=== PATIENT | female | born 1995 | race African-American/Black ===

== ENCOUNTER → 2019-04-27 13:03 | Outpatient (CLI) | payer BC, SELFPAY ==
--- NOTE | ~2019-04-27 | XR_ITS ---
EXAMINATION: XR tibia fibula RT 2V EXAM DATE: 04/27/2019 13:59 INDICATION: Right leg pain. TECHNIQUE: Right tibia/fibula frontal and lateral projections obtained and reviewed. There is no bart or study for comparison. FINDINGS: Right tibial and fibular shafts unremarkable. Unremarkable right knee and ankle joints. T here are no acute fractures or dislocations identified. There is no subcutaneous gas. The soft tiss ue is unremarkable. There are no radiopaque foreign bodies. IMPRESSION: 1. Unremarkable XR tibia fibula RT 2V exam. Reviewed, dictated and finalized at location B. 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
--- NOTE | ~2019-04-27 | XR_ITS ---
EXAMINATION: XR tibia fibula LT 2V EXAM DATE: 04/27/2019 13:59 INDICATION: No known recent injury provided at this time. Pain of the left leg. TECHNIQUE: Left tibia/fibula frontal and lateral projections obtained and reviewed. There is no prio r study for comparison. FINDINGS: Left tibial and fibular shafts unremarkable. Left knee and ankle joints are unremarkable. There are no acute fractures or dislocations identified. There is no subcutaneous gas. The soft ti ssue is unremarkable. There are no radiopaque foreign bodies. IMPRESSION: 1. Unremarkable XR tibia fibula LT 2V exam. Reviewed, dictated and finalized at location B. UREMENT AND VERIFICATION ENGINEER
--- NOTE | ~2019-04-27 | XR_ITS ---
EXAMINATION: XR femur LT min 2V EXAM DATE: 04/27/2019 13:59 INDICATION: No known recent injury provided at this time. Pain of the legs bilaterally. TECHNIQUE: Left femur frontal and lateral projections of the proximal aspect, frontal and lateral pro jections of the lower aspect for review. There is no prior study for comparison. FINDINGS: No appreciable left hip or knee arthritis. There are no acute fractures or dislocations i dentified. There is no subcutaneous gas. The soft tissue is unremarkable. There are no radiopaque foreign bodies. IMPRESSION: 1. Unremarkable XR femur LT min 2V exam. Reviewed, dictated and finalized at location B. 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
--- NOTE | ~2019-04-27 | XR_ITS ---
EXAMINATION: XR femur RT min 2V EXAM DATE: 04/27/2019 13:59 INDICATION: No known recent injury provided at this time. Pain of the right leg. Symptoms 17 years. TECHNIQUE: Right femur frontal and lateral projections of the proximal aspect, frontal and lateral pr ojections of the lower aspect for review. There is no prior study for comparison. FINDINGS: Unremarkable right hip and knee joints. There are no acute fractures or dislocations iden tified. There is no subcutaneous gas. The soft tissue is unremarkable. There are no radiopaque fo reign bodies. IMPRESSION: 1. Unremarkable XR femur RT min 2V exam. Reviewed, dictated and finalized at location B. ER OUT
== END ==
PROVIDERS: PCP Emergency Medicine; Visit Provider Emergency Medicine
DX: M79.669 Pain in unspecified lower leg (principal)
CPT/HCPCS: 73552; 73590

== ENCOUNTER 2019-11-05 15:00 | Outpatient (CLI) | payer BC, SELFPAY ==
--- NOTE | ~2019-11-05 | XR_ITS ---
EXAMINATION: XR UGI wo kub EXAM DATE: 11/05/2019 16:21 INDICATION: Abdominal pain, bloating, feels full fast. Frequent small meals. TECHNIQUE: Standard single and double contrast barium upper GI examination was performed. The DAP for this procedure was 0.5 Gycm2. There is no prior study for comparison. FINDINGS: There is no esophageal stricture, diverticulum or mass identified. Gastroesophageal juncti on is normal in appearance. Reflux was not demonstrated during this examination. The stomach has a normal appearance without evidence of mass lesion, ulceration or filling defect. T here is normal rugal fold pattern. The duodenum and duodenal sweep are normal in appearance. IMPRESSION: Normal exam. Reviewed, dictated and finalized at location A. IMPRESSION: Normal exam.
--- NOTE | ~2019-11-05 | US_ITS ---
EXAMINATION: US abdomen complete DATE: 11/05/2019 15:53 INDICATION: Abdominal pain TECHNIQUE: Multiple grayscale and Doppler ultrasound images of the abdomen were obtained. COMPARISON: None available FINDINGS: Bowel gas obscures visualization of the pancreas. The visualized portions of the pancreas a re unremarkable. The liver is normal with normal echogenicity and echotexture. No surface nodularity. Normal hepatopetal flow in the main portal vein. The gallbladder is normal with no abnormal wall thi ckening, pericholecystic fluid or stones. The normal common bile duct measures 4 mm. There was no son ographic Carrillo sign. The visualized portions of the aorta and inferior vena cava are normal. The right kidney measures 9.7 x 5.1 x 3.3 cm. The left kidney measures 11.5 x 4.4 x 4.5 cm. The kidne ys demonstrate normal parenchymal echogenicity. There is no hydronephrosis. The spleen is normal in a ppearance and measures 9.1 cm. IMPRESSION: 1. No sonographic correlate for the patient's symptoms. Reviewed, dictated and finalized at location B.
== END 2019-11-05 15:01 | disposition home or self-care (01) ==
PROVIDERS: PCP Emergency Medicine; Visit Provider Emergency Medicine
DX: R10.9 Unspecified abdominal pain (principal)
CPT/HCPCS: 74240; 76700

== ENCOUNTER 2020-02-07 08:23 | Emergency (ER) | payer BC, SELFPAY ==
[2020-02-07 08:30] VITALS: BP 106/59; PULSE 64; RESP 16; TEMP 36.3; O2SAT 99
--- NOTE | 2020-02-07 08:42 | ED.GENADULT ---
HPI - General Adult General Chief complaint: Urogenital-Female Stated complaint: Possible Yeast Infection Time Seen by Provider: 02/07/20 08:43 Source: patient Mode of arrival: ambulatory Limitations: no limitations History of Present Illness HPI narrative: 24-year-old female patient presents to the [facility] with complaints of vaginal itching and irritation for the past 4 days. Patient states that she did call her PAPER TWISTER on Friday and thought that it might just been a yeast infection was prescribed fluconazole. Patient states that she did take 1 pill. Patient states that typically it does cleared up however she continues to have symptoms of burning pain, irritation, dryness feeling and she does see some white discharge to the vagina. Patient states she also feels like she has had some lower abdominal pressure. Denies any back pain. Denies any fevers, body aches or chills. Patient states she does not necessarily have any concerns about STDs but states that she is sexually active. Patient states her last period was at the end of December. Patient states she does frequently get treated for BV but states she has not had a BV infection for about the last 3 or 4 months. Related Data Allergies Allergy/AdvReac Type Severity Reaction Status Date / Time No Known Allergies Allergy Verified 02/07/20 08:26 Review of Systems Review of Systems: Narrative: CONSTITUTIONAL: Denies fever, chills, or sweats. EYES: Denies visual changes, redness, or discharge. ENT: Denies rhinorrhea, congestion, sore throat, or otalgia. CARDIOVASCULAR: Denies chest pain, palpitations, or edema. RESPIRATORY: Denies cough or dyspnea. GASTROINTESTINAL: Denies abdominal pain, nausea, vomiting, or diarrhea. GENITOURINARY: Denies dysuria or hematuria. Positive vaginal itching, irritation and discharge SKIN: Denies rash or itching. MUSCULOSKELETAL: Denies back pain, joint pain, or myalgia. NEUROLOGIC: Denies headache, numbness, or weakness. PSYCHIATRIC: Denies anxiety or depression. PMFSH Comments At the time of my signature I agree with nursing past medical history, surgical, social, and family history. There is no relevant family history pertinent to the presenting complaint. Exam Narrative: Exam Narrative: GENERAL: Well-appearing, well-nourished, and in no acute distress. HEAD: Normocephalic, atraumatic. EYES: PERRLA and EOMI. ENT: Nares clear, no rhinorrhea or epistaxis. Mucous membranes moist. NECK: Supple. No lymphadenopathy CHEST: Clear to auscultation. No respiratory distress. HEART: Regular rate and rhythm. No murmur heard. Normal peripheral pulses. ABDOMEN: Soft, nontender, nondistended, normal active bowel sounds. No CVA tenderness on percussion : Normal external female genitalia. OS is closed. No adnexal fullness or TTP. Patient does have copious amount of white thick clumpy discharge in the canal and near the cervix. A swab was obtained for culture of chlamydia and gonorrhea. No CVA tenderness to percussion. EXTREMITIES: Normal range of motion. No edema. SKIN: Warm, dry, no rash. NEURO: No focal deficits. Alert and oriented x3. Course Vital Signs Vital signs: Vital Signs Temperature 36.3 C L 02/07/20 08:30 Pulse Rate 64 02/07/20 08:30 Respiratory Rate 16 02/07/20 08:30 Blood Pressure 106/59 L 02/07/20 08:30 Pulse Oximetry 99 02/07/20 08:30 Temperature 36.3 C L 02/07/20 08:30 Pulse Rate 64 02/07/20 08:30 Respiratory Rate 16 02/07/20 08:30 Blood Pressure 106/59 L 02/07/20 08:30 Pulse Oximetry 99 02/07/20 08:30 Vital signs reviewed. Medical Decision Making Differential Diagnosis Differential Diagnosis: Differential diagnosis: Uncomplicated lower UTI, uncomplicated UTI, pyelonephritis gonorrhea, chlamydia, Trichomonas, bacterial vaginosis, herpes, HIV, yeast infection, urinary tract infection. Discussed with patient that she definitely most likely could have a bacterial vaginosis however since we do not have a
[2020-02-07] MEDS: LIDOCAINE HCL 1% LOCAL INJ 20 ML VIAL IM (08:58)
[2020-02-07] MEDS: cefTRIAXone 250 MG VIAL IM (08:58)
== END 2020-02-07 09:22 | disposition home or self-care (01) ==
PROVIDERS: Emergency Provider Nurse Practitioner Family; PCP Emergency Medicine
DX: B37.3 Candidiasis of vulva and vagina (principal); Z20.2 Contact with and (suspected) exposure to infections with a predominantly sexual mode of transmission
CPT/HCPCS: 81003; 81025; 87086; 87491; 87591; 87661; 96372; 99214; G0463; J0696

== ENCOUNTER 2020-04-19 17:30 | Emergency (ER) | payer BC, SELFPAY ==
--- NOTE | 2020-04-19 17:48 | ECG_ITS ---
Measurements Intervals [place] Rate: 64 P: 72 CA: 171 QRS: 81 QRSD: 77 T: 45 QT: 363 QTc: 376 Interpretive Statements SINUS RHYTHM WITH SINUS ARRHYTHMIA MINIMAL Q WAVES- INFERIOR LEADS BORDERLINE ECG Electronically Signed On 04-20-2020 7:11:44 BRANCH ASSISTANT by Vj Gonzalez D.O.
[2020-04-19 17:49] VITALS: BP 127/76; PULSE 59; RESP 18; TEMP 36.8; O2SAT 100
--- NOTE | 2020-04-19 18:22 | ED.GENADULT ---
HPI - General Adult General Chief complaint: Extremity Problem,Nontraumatic Stated complaint: tingling/numbness left arm History of Present Illness HPI narrative: This is a 24-year-old female comes in complaining of left arm numbness and tingling periodically. Patient states that she has had chest pain off and on does not currently have chest pain. Patient is very tearful during conversation and states that she has a lot of anxiety. Patient also is feeling like she does not have any control things going on to her life has not spoke to a counselor or a psychiatrist states that her dad takes medication for anxiety. Patient states that she read information on strokes and said that this might be a warning sign of her having a stroke. Patient informed me that she does not have any headaches does not take any medication no nausea vomiting no shortness of breath. Patient begins to cry and says that she has not been able to stop crying and the little things make her cry a lot. She is Related Data Home Medications Medication Instructions Recorded Confirmed No Home Medications 04/19/20 04/19/20 Allergies Allergy/AdvReac Type Severity Reaction Status Date / Time No Known Allergies Allergy Verified 04/19/20 17:33 Review of Systems Review of Systems: Narrative: CONSTITUTIONAL: Denies fever, chills, or sweats. EYES: Denies visual changes, redness, or discharge. ENT: Denies rhinorrhea, congestion, sore throat, or otalgia. CARDIOVASCULAR: Reports chest pain, palpitations, or edema. RESPIRATORY: Denies cough or dyspnea. GASTROINTESTINAL: Denies abdominal pain, nausea, vomiting, or diarrhea. GENITOURINARY: Denies dysuria or hematuria. SKIN:[Denies rash or itching. MUSCULOSKELETAL:Denies back pain, joint pain, or myalgia. NEUROLOGIC: Denies headache, reports numbness, or weakness. PSYCHIATRIC:Denies anxiety or depression [facility] Social History Social History Gender identity (if verbalized by the patient): Female Sexual Orientation (if Verbalized by the Patient): Straight or Heterosexual Comments At time as signature, I have reviewed and agree with nursing past medical, social, surgical and family history. Please see nursing chart for further information. There is no relevant family history pertinent to the presenting complaint. Exam Narrative: Exam Narrative: GENERAL:Well-appearing, well-nourished, and in no acute distress. Tearful HEAD:Normocephalic, atraumatic. EYES: PERRLA and EOMI. ENT: Nares clear, no rhinorrhea or epistaxis. Mucous membranes moist. NECK: Supple. CHEST: Clear to auscultation. No respiratory distress. HEART: Regular rate and rhythm. No murmur heard. Normal peripheral pulses. ABDOMEN: Soft, nontender, nondistended, normal active bowel sounds. EXTREMITIES: Normal range of motion. No edema. 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 NEURO: No focal deficits. Alert and oriented x3. No neurological deficit Course Vital Signs Vital signs: Vital Signs Temperature 98.3 F 04/19/20 17:49 Pulse Rate 59 L 04/19/20 17:49 Respiratory Rate 18 04/19/20 17:49 Blood Pressure 127/76 04/19/20 17:49 Pulse Oximetry 100 04/19/20 17:49 Temperature 98.3 F 04/19/20 17:49 Pulse Rate 59 L 04/19/20 17:49 Respiratory Rate 18 04/19/20 17:49 Blood Pressure 127/76 04/19/20 17:49 Pulse Oximetry 100 04/19/20 17:49 Medical Decision Making MDM Narrative Medical decision making narrative: Discussed with patient not able to rule out a heart attack explained to her that this more than likely is anxiety patient would like to go to the emergency room to have the labs drawn Vital Signs Vital Signs: Vital Signs Temperature 98.3 F 04/19/20 17:49 Pulse Rate 59 L 04/19/20 17:49 Respiratory Rate 18 04/19/20 17:49 Blood Pressure 127/76 04/19/20 17:49 Pulse Oximetry 100 04/19/20 17:49
== END 2020-04-19 18:25 | disposition short-term general hospital (02) ==
PROVIDERS: Emergency Provider Nurse Practitioner Family; PCP Emergency Medicine
DX: R20.0 Anesthesia of skin (principal); R20.2 Paresthesia of skin; K21.9 Gastro-esophageal reflux disease without esophagitis
CPT/HCPCS: 93005; 99213; G0463

== ENCOUNTER 2020-04-19 18:32 | Emergency (ER) | payer BC, SELFPAY ==
[2020-04-19 18:38] VITALS: BP 125/69; PULSE 62; RESP 18; TEMP 36.3; O2SAT 100
--- NOTE | 2020-04-19 19:29 | PC.NURSE ---
no answer x1 at triage
== END 2020-04-19 20:18 | disposition left against medical advice (07) ==
LOC: ANHED 20:24
PROVIDERS: Emergency Provider Nurse Practitioner; PCP Emergency Medicine
DX: Z53.21 Procedure and treatment not carried out due to patient leaving prior to being seen by health care provider (principal)
CPT/HCPCS: 99199

== ENCOUNTER 2020-08-01 11:10 | Emergency (ER) | payer BC, SELFPAY ==
--- NOTE | 2020-08-01 11:14 | ED.URI ---
HPI - URI/Sore Throat General Chief Complaint: Upper Respiratory Infection Stated Complaint: boy aches/fever/headache Time Seen by Provider: 08/01/20 11:30 Source: patient and RN notes reviewed Mode of arrival: ambulatory Limitations: no limitations History of Present Illness HPI Narrative: 25-year-old female presents with concern for fever, body aches, headache. Reports symptoms started on Friday. Reports she recently lost her sense of taste and smell. She denies any known sick contacts. Denies cough, shortness of breath, sore throat. Reports she has been taking Tylenol for symptom relief with mild improvement. MD elicited complaint: fever Related Data Home Medications Medication Instructions Recorded Confirmed No Home Medications 04/19/20 04/19/20 Allergies Allergy/AdvReac Type Severity Reaction Status Date / Time No Known Allergies Allergy Verified 08/01/20 11:29 Review of Systems Review of Systems: Narrative: CONSTITUTIONAL: Reports malaise, chills, sweats, fever. EYES: Denies visual changes, redness, or discharge. ENT: Denies rhinorrhea, congestion, sinus pain, otalgia and sore throat. CARDIOVASCULAR: Denies chest pain, palpitations, or edema. RESPIRATORY: Denies cough or dyspnea. GASTROINTESTINAL: Denies abdominal pain, nausea, vomiting, diarrhea SKIN: Denies rash or itching. MUSCULOSKELETAL: Reports myalgia. NEUROLOGIC: Reports headache. All systems reviewed & are unremarkable except as noted in HPI and below PMFSH Social History Social History Gender identity (if verbalized by the patient): Female Comments At time of signature, agree with nursing past medical, surgical, social and family history. There is no relevant family history pertinent to the presenting complaint Exam Narrative: Exam Narrative: GENERAL: Well-appearing, well-nourished, and in no acute distress. HEAD: Normocephalic EYES: PERRLA, conjunctivae clear ENT: Nares clear. Mucous membranes moist. TM pearly castanon with dull light reflex bilaterally; no tragal tenderness. Oropharynx not erythematous without lesions. Tonsils not enlarged and without exudate, no drooling, no hoarseness, no trismus, uvula midline. NECK: Supple. No lymphadenopathy CHEST: Clear to auscultation, breath sounds equal. No wheezing, rhonchi, rales, or stridor. No respiratory distress, speaks in full sentences. HEART: Regular rate and rhythm. No murmur heard. SKIN: Warm, dry, no rash. NEURO: Alert and oriented x3. PSYCH: Normal mood and affect Course Course Emergency Course: Patient is aware of diagnosis, understands and agrees to treatment plan. Anticipatory guidance given. Patient agrees to follow-up as directed and is aware of reasons to seek care at the emergency department. Portions of this record may have been created with voice recognition software Vital Signs Vital signs: Vital Signs Temperature 99.6 F 08/01/20 11:19 Pulse Rate 73 08/01/20 11:19 Respiratory Rate 16 08/01/20 11:19 Blood Pressure 102/59 L 08/01/20 11:19 Pulse Oximetry 100 08/01/20 11:19 Temperature 99.6 F 08/01/20 11:19 Pulse Rate 73 08/01/20 11:19 Respiratory Rate 16 08/01/20 11:19 Blood Pressure 102/59 L 08/01/20 11:19 Pulse Oximetry 100 08/01/20 11:19 Reviewed. MDM - URI/Sore Throat MDM Narrative Medical decision making narrative: Differential diagnosis considered: Velarde virus, strep pharyngitis, allergic rhinitis, upper respiratory tract infection, sinusitis, rhinosinusitis, nasopharyngitis. viral pharyngitis, otitis media, otitis externa, pneumonia, bronchitis, viral cough syndrome, viral syndrome, and influenza. Exam findings show no acute concerns or changes; patient is non-toxic appearing and is in no distress. Patient is appropriate for outpatient treatment and follow-up. Lab Data Attestation: I reviewed the patient's lab results. Labs: Lab Results 08/01/20 Range/Units 11:27 PO
[2020-08-01 11:19] VITALS: BP 102/59; PULSE 73; RESP 16; TEMP 37.6; O2SAT 100
== END 2020-08-01 11:45 | disposition home or self-care (01) ==
PROVIDERS: Emergency Provider Nurse Practitioner; PCP Emergency Medicine
DX: U07.1 COVID-19 (principal); K21.9 Gastro-esophageal reflux disease without esophagitis
CPT/HCPCS: 87426; 99213; C9803; G0463